=== PATIENT | female | born 1970 | race Hispanic/Latino ===

== ENCOUNTER 2016-09-22 23:11 | Emergency (ER) | payer OTHER ==
[2016-09-22 23:35] VITALS: BMI 23.5
[2016-09-22 23:37] VITALS: BP 119/75; PULSE 56; RESP 18; TEMP 97.6; O2SAT 100
== END 2016-09-22 23:49 | disposition left against medical advice (07) ==
LOC: ED 23:11
DX: Z02.89 Encounter for other administrative examinations (principal); R56.9 Unspecified convulsions